=== PATIENT | male | born 1940 | race Caucasian/White ===

== ENCOUNTER → 2024-09-14 07:53 | Outpatient (REF) | payer MEDICARE, BC, SELFPAY ==
[2024-09-14 09:47] LABS: % Basophils 1.5 % (0-2); % Eosinophils 8.3 % (0-6); % Immature Granulocytes 0.6 % (0-0.5); % Lymphocytes 31.4 % (20.5-51.1); % Monocytes 9.8 % (1.7-9.3); % Neutrophils 48.4 % (42.2-75.2); Absolute Basophils 0.1 10^3/uL (0-0.2); Absolute Eosinophils 0.3 10^3/uL (0-0.7); Absolute Lymphocytes 1.1 10^3/uL (1.2-3.4); Absolute Monocytes 0.3 10^3/uL (0.1-0.6); Absolute Neutrophils 1.6 10^3/uL (1.4-6.5); Hematocrit 41.7 % (39.0-52.0); Hemoglobin 14.1 g/dL (13.0-18.0); Mean Corp Hgb Conc. 33.8 g/dL (33.0-37.0); Mean Corpuscular Hgb 30.9 pg (27.0-31.0); Mean Corpuscular Volume 91.4 fL (80.0-94.0); Nucleated Red Blood Cells % 0 % (-); Platelet Count 153 10^3/uL (130-400); Red Blood Cell Count 4.56 10^6/uL (4.70-6.10); Red Cell Dist. Width 13.1 % (11.5-14.5); White Blood Cell Count 3.4 10^3/uL (4.8-10.8)
[2024-09-14 10:10] LABS: ALT (SGPT) 19 U/L (0-50); AST (SGOT) 23 U/L (17-59); Albumin 3.9 g/dl (3.5-5.0); Alkaline Phosphatase 50 U/L (38-126); Blood Urea Nitrogen 21 mg/dl (9-20); Calcium 8.8 mg/dl (8.4-10.2); Carbon Dioxide 28 mmol/L (22-30); Chloride 106 mmol/L (98-107); Glucose 92 mg/dl (70-99); Potassium 4.2 mmol/L (3.5-5.1); Sodium 141 mmol/L (135-145); Total Bilirubin 0.6 mg/dl (0.2-1.3); Total Protein 6.2 g/dl (6.3-8.2); eGFR > 60.00
[2024-09-16 06:59] LABS: ANA, IgG Reflex to HEp-2 Detected (None Detected)
== END ==
LOC: HWLAB 07:53
PROVIDERS: ATTENDING PHYSICIAN Dermatology; FAMILY PHYSICIAN Internal Medicine Geriatric Medicine
DX: D89.89 Other specified disorders involving the immune mechanism, not elsewhere classified (principal)
CPT/HCPCS: 36415; 80053; 83516; 85025; 86038

== ENCOUNTER → 2024-10-02 07:18 | Outpatient (REF) | payer MEDICARE, BC, SELFPAY ==
[2024-10-02 16:49] LABS: HDL Cholesterol 46 mg/dl; LDL Cholesterol, Calculated 104 mg/dl; Total Cholesterol 160 mg/dl (50-199); Triglyceride 52 mg/dl (10-149); Very Low Density Lipoprotein 10 mg/dl (0-30)
== END ==
LOC: HWLAB 07:18
PROVIDERS: ATTENDING PHYSICIAN Internal Medicine Geriatric Medicine
DX: E78.5 Hyperlipidemia, unspecified (principal)
CPT/HCPCS: 36415; 80061

== ENCOUNTER → 2025-03-20 08:05 | Outpatient (REF) | payer MEDICARE, BC, SELFPAY | LOC: HWLAB 08:05 | PROVIDERS: ATTENDING PHYSICIAN Dermatology; FAMILY PHYSICIAN Internal Medicine Geriatric Medicine | DX: D89.89 Other specified disorders involving the immune mechanism, not elsewhere classified (principal) | CPT/HCPCS: 36415 ==